=== PATIENT | female | born 1955 | race Caucasian/White ===

== ENCOUNTER → 2018-05-19 | Outpatient (CLI) | payer OTHER | LOC: M.RAD 08:41 | DX: Z12.31 Encounter for screening mammogram for malignant neoplasm of breast (principal) ==

== ENCOUNTER → 2019-05-25 | Outpatient (CLI) | payer OTHER | LOC: M.RAD 08:12 | DX: Z12.31 Encounter for screening mammogram for malignant neoplasm of breast (principal) ==

== ENCOUNTER → 2020-05-27 | Outpatient (CLI) | payer OTHER | LOC: M.RAD 08:49 | PROVIDERS: ATTEND Family Medicine | DX: Z12.31 Encounter for screening mammogram for malignant neoplasm of breast (principal) ==

== ENCOUNTER → 2021-05-28 | Outpatient (CLI) | payer OTHER | LOC: M.RAD 09:40 | PROVIDERS: ATTEND Family Medicine | DX: Z12.31 Encounter for screening mammogram for malignant neoplasm of breast (principal) ==